=== PATIENT | male | born 1965 | race Asian ===

== ENCOUNTER 2019-05-17 02:58 | Emergency (ER) | payer MEDICAID, OTHER ==
[~2019-05-17] VITALS: Ht 172.7 cm; Wt 81.8 kg
[2019-05-17 03:23] VITALS: BP 145/89
== END 2019-05-17 04:00 | disposition home or self-care (01) ==
LOC: EMS 03:00
DX: H10.11 Acute atopic conjunctivitis, right eye (principal); L25.9 Unspecified contact dermatitis, unspecified cause; F17.210 Nicotine dependence, cigarettes, uncomplicated